=== PATIENT | female | born 1985 | race African-American/Black ===

== ENCOUNTER 2023-07-17 07:39 | Emergency (ER) | payer OTHER, SELFPAY ==
[2023-07-17] MEDS ORDERED: Acetaminophen 500 MG TAB ONE (08:14)
[2023-07-17 08:21] LABS: Bilirubin Negative (Negative); Blood, Urine Trace (Negative); Clarity Clear (Clear); Glucose, Urine (Dipstick) Negative (Negative); Ketone, Urine Negative (Negative); Leukocyte Negative (Negative); Nitrite Negative (Negative); Protein, Urine (Dipstick) Negative (Neg-Trace); Urobilinogen 0.2 mg/dL (Less than 2); pH, Urine 5.5 (5.0-9.0)
[2023-07-17 08:23] LABS: Specific Gravity, Urine 1.022 (1.002-1.036)
[2023-07-17 08:26] LABS: Pregnancy Test - Urine (BHCG) Negative (Negative); Pregu Control Background? CLEAR/WHITE (CLR/WHITE); Pregu Control Bar Appear? YES (CONTROL BAR); Specific Gravity 1.022 (1.002-1.036)
[2023-07-17 08:29] LABS: Wet Prep Clue Cells Clue Cells Absent (None Seen); Wet Prep Trichomonas Trichomonas Absent (None Seen)
[2023-07-17 08:34] LABS: Bacteria/HPF Rare-Few HPF (None Seen); CAUTI Indications for Culture Dysuria,urgency,freq; Mucous/LPF 1+ LPF (<2+); RBC/HPF 0-3 HPF (0-3); Urine Culture Reflex No No; WBC/HPF 0-3 HPF (0-3)
[2023-07-17 21:10] LABS: Chlam.trachomatis by PCR,Urine Not Detected (NotDetected); GC N.gonorrhoeae PCR,UrineVOID Not Detected (NotDetected)
== END 2023-07-17 08:58 | disposition home or self-care (01) ==
LOC: MADERS 07:39
DX: H61.23 Impacted cerumen, bilateral (principal)
CPT/HCPCS: 81001; 81025; 87210; 87491; 87591; 99283